=== PATIENT | male | born 1985 | race Caucasian/White ===

== ENCOUNTER 2018-09-17 12:04 | Emergency (ER) | payer OTHER ==
[~2018-09-17] VITALS: Ht 165.1 cm; Wt 68.0 kg
--- NOTE | 2018-09-17 12:05 | NUR ---
Pt to [facility] chair 1
[2018-09-17 12:12] VITALS: BP_SYST 124
--- NOTE | 2018-09-17 12:15 | NUR ---
Off unit for MRI
--- NOTE | 2018-09-17 16:00 | NUR ---
ER Dr. Alcazar at bedside examining patient.
--- NOTE | 2018-09-17 18:00 | NUR ---
Pt has his own crutches. Diego wrap already on rt knee. Pt arrived with diego and crutches. +CMS
--- NOTE | 2018-09-17 18:10 | NUR ---
Patient given written and verbal discharge instructions and verbalizes understanding. ER MD discussed with patient the results and treatment provided. Patient in stable condition. ID arm band removed. Rx of ibuprofen given. Patient educated on pain management and to follow up with PMD. Pain Scale 3/10. Opportunity for questions provided and answered.
[2018-09-17 18:11] VITALS: BP_SYST 121
== END 2018-09-17 18:10 | disposition home or self-care (01) ==
LOC: SED 12:04
DX: M25.561 Pain in right knee (principal); V00.131A Fall from skateboard, initial encounter; Y93.51 Activity, roller skating (inline) and skateboarding; Y92.89 Other specified places as the place of occurrence of the external cause; Y99.8 Other external cause status
CPT/HCPCS: 73721; 99284

== ENCOUNTER 2018-10-15 12:07 | Outpatient (CLI) | payer OTHER ==
[2018-10-15 13:08] LABS: HEMATOCRIT 51.5 % (36-54); HEMOGLOBIN 17.7 g/dL (14.0-18.0); MEAN CORPUSCULAR VOLUME 89 fL (79.0-98.0); RED BLOOD CELL COUNT(AUTO) 5.76 MIL/uL (4.2-6.2); WHITE BLOOD COUNT (AUTO) 8.9 K/uL (4.8-10.8)
[2018-10-15 13:09] LABS: BASOPHILS % (AUTO) 0.5 % (0.0-2.0); EOSINOPHILS # (AUTO) 0.2 K/uL (0.0-0.4); EOSINOPHILS % (AUTO) 1.9 % (0.0-4.0); LYMPHOCYTES # (AUTO) 2.5 K/uL (1.0-5.5); LYMPHOCYTES % (AUTO) 28.3 % (20.5-51.5); MEAN CORPUSCULAR HEMOGLOBIN 31 pg (27-31); MEAN CORPUSCULAR HGB CONC 34 % (32-36); MONOCYTES # (AUTO) 0.6 K/uL (0.0-1.0); MONOCYTES % (AUTO) 6.7 % (1.7-9.3); NEUTROPHILS # (AUTO) 5.6 K/uL (1.8-7.7); NEUTROPHILS % (AUTO) 62.6 % (40.0-70.0); PLATELET COUNT (AUTO) 283 K/uL (130-430); RED CELL DISTRIBUTION WIDTH 13.1 % (9.0-15.0)
[2018-10-15 13:23] LABS: ALBUMIN 4.3 g/dL (3.4-4.8); CALCIUM 9.2 mg/dL (8.4-11.0); CREATININE 0.89 mg/dL (0.55-1.30); POTASSIUM 4.1 mmol/L (3.5-5.1); THYROID STIMULATING HORMONE 1.29 uIu/mL (0.34-4.82); TOTAL BILIRUBIN 0.4 mg/dL (0.0-1.0); URIC ACID 6.2 mg/dL (2.4-7.0)
[2018-10-16 06:07] LABS: HEMOGLOBIN A1C 5.3 % (4.8-5.6)
== END 2018-10-15 23:30 | disposition home or self-care (01) ==
LOC: SLB 12:07
PROVIDERS: ATTEND Internal Medicine
DX: Z00.00 Encounter for general adult medical examination without abnormal findings (principal)
CPT/HCPCS: 36415; 80053; 80061; 82306; 82607; 83036; 84443-TC; 84550-TC; 85025

== ENCOUNTER 2019-05-26 10:36 | Outpatient (CLI) | payer OTHER | END 2019-05-26 20:45 | disposition home or self-care (01) | LOC: SMI 10:36 | PROVIDERS: ATTEND Internal Medicine | DX: M25.461 Effusion, right knee (principal) | CPT/HCPCS: 73721 ==